=== PATIENT | male | born 1980 | race Caucasian/White ===

== ENCOUNTER 2022-04-25 17:02 | Emergency (ER) | payer OTHER ==
[2022-04-25] MEDS ORDERED: methylPREDNISolone Sodium Succinate 125 MG/2 ML SDV IM STA (17:47)
[2022-04-25] MEDS ORDERED: Cyclobenzaprine 10 MG Tab PO STA (17:47)
[2022-04-25] MEDS ORDERED: Ketorolac 30 MG/ML SDV IM STA (17:47)
[2022-04-25 20:19] LABS: ESTIMATED GFR 86 mL/min (>60)
[2022-04-25 20:22] LABS: ACETAMINOPHEN < 2 ug/mL (<2)
[2022-04-26] MEDS ORDERED: Ibuprofen 800 MG Tab PO ONE (03:41)
[2022-04-26] MEDS ORDERED: Acetaminophen 500 MG Tab PO STA (03:41)
[2022-04-26] MEDS ORDERED: traMADol 50 MG Tab PO ONE (09:38)
== END 2022-04-26 14:36 ==
LOC: FB.ED 17:02
DX: M79.7 Fibromyalgia (principal); R45.851 Suicidal ideations; Z88.1 Allergy status to other antibiotic agents; Z77.22 Contact with and (suspected) exposure to environmental tobacco smoke (acute) (chronic); Z20.822 Contact with and (suspected) exposure to COVID-19
CPT/HCPCS: 36415; 80053; 80143; 80179; 80307; 84439; 84443; 85025; 87635; 96372; 99283; 99285; A9270; J1885; J2930; U0002

== ENCOUNTER 2022-05-29 20:39 | Emergency (ER) | payer MEDICAID, OTHER ==
[2022-05-29] MEDS ORDERED: Clindamycin HCl 150 MG Cap PO ONE (21:44)
== END 2022-05-29 22:10 | disposition home or self-care (01) ==
LOC: FB.ED 20:39
DX: K04.7 Periapical abscess without sinus (principal); Z88.1 Allergy status to other antibiotic agents
CPT/HCPCS: 99281; 99282; A9270-GY